=== PATIENT | female | born 1945 | race Caucasian/White ===

== ENCOUNTER 2019-09-12 13:07 | Observation (INO) | payer OTHER ==
[~2019-09-12] VITALS: Ht 162.6 cm; Wt 72.6 kg
[2019-09-12 13:33] VITALS: Ht 162.6 cm; Wt 72.6 kg
[2019-09-12 14:05] LABS: BASOPHIL % 0.8 % (0-2); PLATELET COUNT 204 x10^3mcL (130-400)
[2019-09-12 14:14] LABS: RED CELL DISTRIBUTION WIDTH 16.3 % (11.5-14.5)
[2019-09-12 14:18] LABS: CALCIUM 7.9 mg/dL (8.5-10.1); CARBON DIOXIDE 25.1 mmol/L (21-32); CHLORIDE SERUM 104 mmol/L (98-107); CREATININE SERUM 0.9 mg/dL (0.6-1.0); GLUCOSE SERUM 123 mg/dL (74-106); SODIUM SERUM 137 mmol/L (136-145)
[2019-09-12 14:24] LABS: ALKALINE PHOSPHATASE 47 U/L (46-116); ALT/SGPT 8 U/L (14-59); AST/SGOT 18 U/L (15-37); BILIRUBIN TOTAL 0.8 mg/dL (0.20-1.00); TOTAL PROTEIN, SERUM 6.3 g/dL (6.4-8.2)
[2019-09-12 14:25] LABS: ALBUMIN 3.1 g/dL (3.4-5.0)
[2019-09-12 14:55] LABS: microscopic required? NO
[2019-09-12 15:00] LABS: urine erythrocyte NEGATIVE (NEGATIVE)
[2019-09-12 15:26] LABS: AMPHETAMINE QUAL UR NONE DETECTED (See below)
[2019-09-12 17:35] LABS: MAGNESIUM 1.7 mg/dL (1.8-2.4); PHOSPHOROUS 3.6 mg/dL (2.5-4.9)
[2019-09-12 17:44] LABS: T3 TOTAL 0.85 ng/mL
[2019-09-12 18:01] LABS: FREE T4 1.37 ng/dL (0.76-1.46); FREE THYROXINE INDEX 3.4 ug/dL (1.4-4.5); T4(THYROXINE) 9.5 ug/dL (4.7-13.3)
[2019-09-12 20:14] VITALS: BP 129/75
[2019-09-12 20:51] VITALS: BP 136/84
[2019-09-13 06:43] LABS: CALCIUM 7.7 mg/dL (8.5-10.1); CARBON DIOXIDE 22.1 mmol/L (21-32); CHLORIDE SERUM 107 mmol/L (98-107); CREATININE SERUM 0.9 mg/dL (0.6-1.0); GLUCOSE SERUM 83 mg/dL (74-106); POTASSIUM SERUM 3.5 mmol/L (3.5-5.1); SODIUM SERUM 139 mmol/L (136-145)
[2019-09-13 06:44] VITALS: BP 127/55
[2019-09-13 07:03] LABS: BASOPHIL % 0.3 % (0-2); PLATELET COUNT 175 x10^3mcL (130-400)
[2019-09-13 07:14] LABS: RED CELL DISTRIBUTION WIDTH 15.9 % (11.5-14.5)
[2019-09-13 08:20] VITALS: BP 98/47
[2019-09-13] MEDS ORDERED: DRAMAMINE LESS25 MG PO (09:05)
[2019-09-13 10:45] VITALS: BP 89/46
[2019-09-13 10:47] VITALS: BP 109/63
[2019-09-13 10:49] VITALS: BP 100/56
[2019-09-13 13:59] VITALS: BP 115/70
== END 2019-09-13 14:35 | disposition home or self-care (01) ==
LOC: ED 13:07 → DU 16:49 → MU 16:49 → DU 23:31
PROVIDERS: Emergency Medicine; ADMIT Internal Medicine
DX: G92 Toxic encephalopathy (principal); T40.7X5A Adverse effect of cannabis (derivatives), initial encounter; T42.4X5A Adverse effect of benzodiazepines, initial encounter; R42 Dizziness and giddiness; I10 Essential (primary) hypertension; Z86.73 Personal history of transient ischemic attack (TIA), and cerebral infarction without residual deficits; R11.2 Nausea with vomiting, unspecified; R53.1 Weakness; Y92.89 Other specified places as the place of occurrence of the external cause
CPT/HCPCS: 84439; G0378; J2765; J7030; J8597